=== PATIENT | male | born 1945 | race Caucasian/White ===

== ENCOUNTER 2021-10-06 15:34 | Inpatient (IN) ==
--- NOTE | 2021-10-06 15:42 | Emergency Department Note ---
History of Present Illness General Chief complaint: Dental/Oral Stated complaint: FALL, ORAL/DENTAL INJURY Time Seen by Provider: 10/06/21 15:42 History of Present Illness Maximum Pain Intensity: 5 This is a 75-year-old male that presents to the emergency department via private vehicle accompanied by with complaints of "fall, oral/dental injury". The patient notes earlier today around 4:30 AM he was getting out of bed and fell. He is unsure what caused him to fall. He struck the nightstand from a standing position. His then came to bedside and he was on the ground. He noted that he immediately had injuries to his mouth. There was blood coming from his mouth and upper lip region. He denies losing consciousness. He denies any preceding chest pain, shortness of breath or lightheadedness. No symptoms of chest pain, shortness of breath since the fall. No dizziness. He notes pain in his mouth since the fall. Home Medications Medication Instructions Recorded Confirmed Type atorvastatin 20 mg tablet 20 mg PO QAM 10/06/21 10/06/21 History felodipine 2.5 mg tablet,extended 2.5 mg PO QAM 10/06/21 10/06/21 History release 24 hr lisinopril 20 1 tab PO QAM 10/06/21 10/06/21 History mg-hydrochlorothiazide 12.5 mg tablet Allergies Allergy/AdvReac Type Severity Reaction Status Date / Time No Known Allergies Allergy Unverified 10/06/21 20:14 Past Med/Surg History Medical History HTN (hypertension) Hypercholesterolemia Surgical History No pertinent past surgical history Social History Smoking Status: Former smoker Feels Safe at Home: Yes Review of Systems A total of 10 systems reviewed and were otherwise negative Physical Exam Vital Signs Vital Signs - 24 hr 10/06/21 15:37 10/06/21 16:20 10/06/21 17:28 Temperature 36.5 C Temperature Source Skin Pulse Rate 114 H Pulse Rate [Finger] 89 89 Pulse Rhythm Regular Pulse Rhythm [Finger] Regular Regular Pulse Strength Normal Pulse Strength [Finger] Normal Normal Respiratory Rate 20 16 16 Respiratory Effort / Characteristics Non-Labored Spontaneous Non-Labored Spontaneous Non-Labored Spontaneous Respiratory Depth Normal Normal Normal Respiratory Pattern Regular Regular Regular Blood Pressure 158/80 H Blood Pressure [Right Arm] 140/81 136/74 Blood Pressure Mean 106 Blood Pressure Mean [Right Arm] 100 94 Blood Pressure Position [Right Arm] Sitting Sitting Pulse Oximetry 95 99 94 Oxygen Delivery Method Room Air Room Air Room Air Sepsis Recent Fever Within 48 Hours No Sepsis New/Unexplained Change in Mental Status N/A Sepsis Action Taken by Nursing No Action Required 10/06/21 19:30 10/06/21 21:04 Temperature Temperature Source Pulse Rate Pulse Rate [Finger] 76 74 Pulse Rhythm Pulse Rhythm [Finger] Pulse Strength Pulse Strength [Finger] Respiratory Rate 18 18 Respiratory Effort / Characteristics Respiratory Depth Respiratory Pattern Blood Pressure Blood Pressure [Right Arm] 147/76 H 132/72 Blood Pressure Mean Blood Pressure Mean [Right Arm] 99 92 Blood Pressure Position [Right Arm] Pulse Oximetry 96 96 Oxygen Delivery Method Room Air Sepsis Recent Fever Within 48 Hours Sepsis New/Unexplained Change in Mental Status Sepsis Action Taken by Nursing VITAL SIGNS - Vital signs and nursing notes were reviewed. Stable and afebrile. GENERAL -75-year-old male appearing his stated age. Communicates well with provider and answers questions appropriately. SKIN - Gross examination of the entire body surface demonstrates upper lip laceration to the wet mucosa. This is intraoral. No external lacerations noted. HEAD - Normocephalic, Atraumatic. No Guillen's Sign or Raccoon's Eyes. No depressed skull fractures palpable. EYES - PERRL with EOMI bilaterally. Without subconjunctival hemorrhage. Palpebral conjunctiva pink and moist with no injection. EARS - No deformities of external structures noted on gross examination bilaterally. No hemotympanum present. No tympanic perforation noted. Handle of malleus, umbo, cone of light, pars tensa/flaccid all easily visualized. NOSE - Midline and without cyanosis. No epistaxis or clear watery discharge noted. Septum midline without deviation. No septal hematoma noted. No overlying ecchymosis noted. MOUTH/OROPHARYNX - Without perioral cyanosis. Tongue midline with equal elevation of palate bilaterally. No blood noted in the oropharynx. No tonsillar hypertrophy, erythema, or exudates noted. Several dental fractures noted of the upper dentition. NECK -no tenderness to palpation over the cervical spinous processes. No cervical paraspinal muscle tenderness noted. LUNGS - Chest wall symmetric without accessory muscle use, intercostals retractions, or central cyanosis. Normal vesicular breath sounds CTA B/L. No wheezes, rales, or rhonchi appreciated. CARDIAC - RRR with S1/S2. No murmur, rubs, or gallops appreciated. EXTREMITIES - No gross deformities noted of the extremities. FROM actively. No deficits. +5/5 strength noted in UE/LE bilaterally. NEUROLOGIC - Cranial nerves II through XII grossly intact. PSYCH - A&Ox3 and cooperates fully with examiner. Pt is very pleasant and interacts well with examiner. Course Administered Medications Discontinued Medications Ampicillin Sodium/Sulbactam Sodium 3,000 mg/ Sodium Chloride 108 mls @ 200 mls/hr IV NOW STA; Protocol Stop: 10/06/21 18:48 Last Infusion: 10/06/21 19:36 Dose: 0 mls/hr Documented by: [id number] Admin: 10/06/21 18:57 Dose: 200 mls/hr Documented by: [id number] Miscellaneous Information (Consult Pharmacy) 1 ea N/A NOW STA Stop: 10/06/21 20:08 Last Admin: 10/06/21 20:47 Dose: Not Given Documented by: [id number] Medical Decision Making Laboratory Data Result diagrams: 10/06/21 16:11 10/06/21 16:11 Lab Results 10/06/21 10/06/21 10/06/21 Range/Units 16:11 16:11 18:33 WBC 10.10 (4.8-10.8) K/uL RBC 4.52 L (4.7-6.1) M/uL Hgb 14.7 (14.0-18.0) g/dL Hct 42.1 (42-52) % MCV 93.1 (80-100) fL MCH 32.5 (25-34) pg MCHC 34.9 (32-36) g/dL RDW Std Deviation 44.4 (36.4-46.3) fL RDW Coeff of Amara 13.0 (11.5-14.5) % Plt Count 247 (130-400) K/uL MPV 8.9 (7.4-10.4) fL Immature Gran % (Auto) 0.1 % Neut % (Auto) 83.8 % Lymph % (Auto) 8.6 % [place] % (Auto) 7.3 % Eos % (Auto) 0.1 % Baso % (Auto) 0.1 % Neut # (Auto) 8.46 H (1.4-6.5) K/uL Lymph # (Auto) 0.87 L (1.2-3.4) K/uL [place] # (Auto) 0.74 H (0.11-0.59) K/uL Eos # (Auto) 0.01 (0-0.5) K/uL Baso # (Auto) 0.01 (0-0.2) K/uL Immature Gran # (Auto) 0.01 (0.00-0.02) K/uL Sodium 138 (136-145) mmol/L Potassium 3.9 (3.5-5.1) mmol/L Chloride 102 (98-107) mmol/L Carbon Dioxide 25 (21-32) mmol/L Anion Gap 11 (3-11) BUN 14 (6-23) mg/dl Creatinine 1.21 (0.6-1.4) mg/dl Est Cr Clr Drug Dosing 73.2 ml/min Est GFR ( Amer) 68.4 ml/min Est GFR (Non-Af Amer) 59.0 ml/min BUN/Creatinine Ratio 11.6 (10-20) Glucose 135 H (70-99(Fasting)) mg/dl Calcium 9.3 (8.5-10.1) mg/dl Total Bilirubin 1.1 H (0.2-1.0) mg/dl AST 25 (13-39) U/L ALT 30 (7-52) U/L Alkaline Phosphatase 90 (34-104) U/L Troponin I High Sens 4.2 (0-20) pg/ml Total Protein 7.5 (6.0-8.3) gm/dl Albumin 4.5 (3.4-5.0) gm/dl Globulin 3.0 (2.5-4.0) gm/dl Albumin/Globulin Ratio 1.5 (0.9-2) Urine Color Urine Appearance (Clear) Urine pH (4.5-7.5) Ur Specific [place] (1.000-1.030) Urine Protein (Negative) Urine Glucose (UA) (Negative) Urine Ketones (Negative) Urine Blood (Negative) Urine Nitrite (Negative) Urine Bilirubin (Negative) Urine Urobilinogen (Negative) Ur Leukocyte Esterase (Negative) Urine WBC (Auto) (0-5) /hpf Urine RBC (Auto) (0-4) /hpf U Hyaline Cast (Auto) (0-5) /lpf U Epithel Cells (Auto) (0-5) /lpf Urine Bacteria (Auto) (Negative) SARS-CoV-2, RNA, NAAT NEGATIVE (NEGATIVE) 10/06/21 Range/Units 19:44 WBC (4.8-10.8) K/uL RBC (4.7-6.1) M/uL Hgb (14.0-18.0) g/dL Hct (42-52) % MCV (80-100) fL MCH (25-34) pg MCHC (32-36) g/dL RDW Std Deviation (36.4-46.3) fL RDW Coeff of Amara (11.5-14.5) % Plt Count (130-400) K/uL MPV (7.4-10.4) fL Immature Gran % (Auto) % Neut % (Auto) % Lymph % (Auto) % [place] % (Auto) % Eos % (Auto) % Baso % (Auto) % Neut # (Auto) (1.4-6.5) K/uL Lymph # (Auto) (1.2-3.4) K/uL [place] # (Auto) (0.11-0.59) K/uL Eos # (Auto) (0-0.5) K/uL Baso # (Auto) (0-0.2) K/uL Immature Gran # (Auto) (0.00-0.02) K/uL Sodium (136-145) mmol/L Potassium (3.5-5.1) mmol/L Chloride (98-107) mmol/L Carbon Dioxide (21-32) mmol/L Anion Gap (3-11) BUN (6-23) mg/dl Creatinine (0.6-1.4) mg/dl Est Cr Clr Drug Dosing ml/min Est GFR ( Amer) ml/min Est GFR (Non-Af Amer) ml/min BUN/Creatinine Ratio (10-20) Glucose (70-99(Fasting)) mg/dl Calcium (8.5-10.1) mg/dl Total Bilirubin (0.2-1.0) mg/dl AST (13-39) U/L ALT (7-52) U/L Alkaline Phosphatase (34-104) U/L Troponin I High Sens (0-20) pg/ml Total Protein (6.0-8.3) gm/dl Albumin (3.4-5.0) gm/dl Globulin (2.5-4.0) gm/dl Albumin/Globulin Ratio (0.9-2) Urine Color Yellow Urine Appearance Clear (Clear) Urine pH 7.0 (4.5-7.5) Ur Specific [place] 1.012 (1.000-1.030) Urine Protein Negative (Negative) Urine Glucose (UA) Negative (Negative) Urine Ketones Trace H (Negative) Urine Blood Negative (Negative) Urine Nitrite Negative (Negative) Urine Bilirubin Negative (Negative) Urine Urobilinogen Negative (Negative) Ur Leukocyte Esterase Trace H (Negative) Urine WBC (Auto) 1-5 (0-5) /hpf Urine RBC (Auto) 0-4 (0-4) /hpf U Hyaline Cast (Auto) 1-5 (0-5) /lpf U Epithel Cells (Auto) 10-20 H (0-5) /lpf Urine Bacteria (Auto) Negative (Negative) SARS-CoV-2, RNA, NAAT (NEGATIVE) Imaging Data Radiologist's Impression: Cervical Spine CT 10/06/21 15:51 CT OF THE CERVICAL SPINE WITHOUT CONTRAST CLINICAL HISTORY: Fall, Facial trauma. COMPARISON STUDY: No previous studies for comparison. TECHNIQUE: Helical axial images of the cervical spine were obtained without IV contrast. Sagittal and coronal reconstructions were viewed. Automated exposure control was utilized for the study. A dose lowering technique was utilized adhering to the principles of ALARA. FINDINGS: There is reversal of the normal cervical lordosis. No acute cervical spine fracture is noted. Extensive osteophytosis of the mid to lower cervical spine is present. There is moderate multilevel disc space narrowing. Facet joints are intact. There is severe multilevel facet arthrosis. No prevertebral edema is present. IMPRESSION: No acute cervical spine fracture or subluxation. ACT 112: Negative or not required by law. Electronically signed by: Ildefonso Noel M.D. 10/06/2021 5:[address] 10/06/21 15:[address] WITHOUT CONTRAST CLINICAL HISTORY: Fall, Facial trauma, upper lip/teeth COMPARISON STUDY: None. TECHNIQUE: A maxillofacial CT was performed without IV contrast. Coronal and sagittal reformats were viewed. Automated exposure control was utilized for the study. A dose lowering technique was utilized adhering to the principles of ALARA. FINDINGS: Globes are intact. There is no retrobulbar hematoma. Orbital floors are intact. Pterygoid plates are intact. Alignment of the temporomandibular joints is anatomic. There is no acute skull base fracture. Note is made of an acute fracture through the left aspect of the maxilla. This involves the alveolar ridge of the left maxillary medial incisor. There is lucency adjacent to the root of this tooth. There is a 1.2 cm bony erosion associated with the left maxillary first bicuspid. This is not acute. There is abnormal lucency along the alveolar ridge of multiple mandibular teeth. This is age indeterminate. Numerous teeth are absent. Cervical spine CT will be reported separately. IMPRESSION: 1. Acute nondisplaced fracture of the left anterior maxilla involving the alveolar ridge of the left maxillary medial incisor. This tooth is likely loose. 2. Abnormal lucency along the alveolar ridge of multiple mandibular teeth. This finding is age indeterminate although probably chronic. This could be correlated with physical exam to exclude an additional acute fracture. 3. Extensive odontogenic disease. ACT 112: Negative or not required by law. Electronically signed by: Ildefonso Noel M.D. 10/06/2021 4:[address] 10/06/21 15:51 CT OF THE HEAD WITHOUT CONTRAST CLINICAL HISTORY: Fall, Facial trauma, upper lip/teeth COMPARISON STUDY: No previous studies for comparison. TECHNIQUE: Helical axial images of the head were obtained without IV contrast. Automated exposure control was utilized for the study. A dose lowering technique was utilized adhering to the principles of ALARA. FINDINGS: No acute intracranial hemorrhage, midline shift or mass effect is present. The ventricular system is unremarkable. The basal cisterns are patent. No extra-axial collections are present. There are no findings to suggest acute dural sinus thrombosis or acute territorial infarct. No significant calvarial abnormalities are present. Visualized portions of the sinuses and mastoid air cells are clear. IMPRESSION: 1. No acute intracranial findings. 2. No acute calvarial fracture. ACT 112: Negative or not required by law. Electronically signed by: Ildefonso Noel M.D. 10/06/2021 4:48 PM MDM Narrative Patient was seen and evaluated as above in room D01. Review was performed of nursing notes and vital signs. After obtaining a thorough history and physical examination the above work up was performed. Patient presents to us today for evaluation of facial trauma status post fall that occurred about 12 hours ago. He clinically appears well and is nontoxic. He does have an upper lip intraoral laceration as well as several upper dentition that have been injured. Options of care were discussed with the patient. IV access was established. Labs were drawn. Patient is unsure what caused him to fall earlier today. Labs reveal no leukocytosis or concerning anemia. No emergent metabolic disturbance. T bili 1.1. Glucose 135. Urinalysis does not suggest infection. COVID testing negative. CT scan was obtained of the head, face and C-spine. Results of these as above. CT scan of the head and neck are overall reassuring from an acute/traumatic process. The patient does have facial injuries noted. There is an acute nondisplaced fracture of the left anterior maxilla involving the alveolar ridge of the left maxillary medial incisor. The tooth is likely loose per CT report. There is also comment of abnormal lucency along the alveolar ridge of multiple mandibular teeth. This finding is age-indeterminate. I discussed the presentation with the on-call oral maxillofacial surgeon, Dr. Welch. He came to evaluate the patient. Please refer to his note regarding consult. At this time we will defer to surgical intervention regarding his dentition as well as the lip laceration. Dr. Welch will perform the surgery. In order to undergo anesthetic however the patient will be admitted to the medicine service pending surgery to gain medical clearance as it is unclear what caused him to fall earlier today. Case discussed with the hospitalist service. Please refer to further documentation regarding his stay. In discussion with Dr. Welch, we will start the patient on IV antibiotics noting the several dental injuries to help prevent infection. This will be IV Unasyn. Please refer to further documentation regarding the patient's stay. EKG was performed. Initial EKG was abnormal. This revealed what appears to be a sinus rhythm with a rate of 80 bpm. QTc 431. QRS 100. No ST elevation. The patient does have inverted P waves and I am suspicious for incorrect placement of the leads. Repeat was performed and was felt to be more accurate. This revealed sinus rhythm with sinus arrhythmia at a rate of 69 bpm. QTc 413. QRS 104. No ST elevation. GCS: 15 In the evaluation and treatment of this patient the following differential abbie gnoses were entertained: Dental fracture, acute intracranial abnormality, cardiac abnormality, anemia, infection, among others Impression & Plan Fall, Fracture of maxillary alveolar socket wall, Loose tooth due to trauma, Lip laceration, Closed fracture of face bones due to fall Discharge Plan Visit Data Chief Complaint: Dental/Oral Stated Complaint: FALL, ORAL/DENTAL INJURY ED Provider: Gabriel Méndez ED Midlevel Provider: Masoud Tavares Patient Disposition: Admitted As Inpatient Condition: Good Prescriptions Prescriptions: No Action felodipine 2.5 mg tablet extended release 24 hr 2.5 mg PO QAM RF: 0 atorvastatin 20 mg tablet 20 mg PO QAM RF: 0 lisinopril-hydrochlorothiazide 20-12.5 mg tablet 1 tab PO QAM RF: 0
[2021-10-06 16:25] LABS: Basophils # (auto) 0.01 K/uL (0-0.2); Basophils % (auto) 0.1 %; Eosinophils # (auto) 0.01 K/uL (0-0.5); Eosinophils % (auto) 0.1 %; Hematocrit (blood only) 42.1 % (42-52); Hemoglobin 14.7 g/dL (14.0-18.0); Immature Granulocytes # (auto) 0.01 K/uL (0.00-0.02); Immature Granulocytes % (auto) 0.1 %; Lymphocytes # (auto) 0.87 K/uL (1.2-3.4); Lymphocytes % (auto) 8.6 %; Mean Corpuscular Hemoglobin 32.5 pg (25-34); Mean Corpuscular Hgb Conc 34.9 g/dL (32-36); Mean Corpuscular Volume 93.1 fL (80-100); Mean Platelet Volume 8.9 fL (7.4-10.4); Monocytes # (auto) 0.74 K/uL (0.11-0.59); Monocytes % (auto) 7.3 %; Neutrophils # (auto) 8.46 K/uL (1.4-6.5); Neutrophils % (auto) 83.8 %; Platelet Count 247 K/uL (130-400); RDW Standard Deviation 44.4 fL (36.4-46.3); Red Blood Count 4.52 M/uL (4.7-6.1)
[2021-10-06 16:47] LABS: Troponin I High Sensitivity 4.2 pg/ml (0-20)
--- NOTE | 2021-10-06 16:50 | CT Scan Report ---
CT OF THE HEAD WITHOUT CONTRAST CLINICAL HISTORY: Fall, Facial trauma, upper lip/teeth COMPARISON STUDY: No previous studies for comparison. TECHNIQUE: Helical axial images of the head were obtained without IV contrast. Automated exposure con trol was utilized for the study. A dose lowering technique was utilized adhering to the principles o f ALARA. FINDINGS: No acute intracranial hemorrhage, midline shift or mass effect is present. The ventricular system is unremarkable. The basal cisterns are patent. No extra-axial collections are present. There are no findings to suggest acute dural sinus thrombosis or acute territorial infarct. No significant calvarial abnormalities are present. Visualized portions of the sinuses and mastoid air cells are cecil ar. IMPRESSION: 1. No acute intracranial findings. 2. No acute calvarial fracture. ACT 112: Negative or not required by law. Electronically signed by: Ildefonso Noel M.D. 10/06/2021 4:48 PM
[2021-10-06 16:56] LABS: Albumin Globulin Ratio 1.5 (0.9-2); Albumin Level 4.5 gm/dl (3.4-5.0); BUN Creatinine Ratio 11.6 (10-20); Bilirubin,Total 1.1 mg/dl (0.2-1.0); Calcium 9.3 mg/dl (8.5-10.1); Creatinine Clr Calc Pharmacy 73.2 ml/min; Est GFR (African American) 68.4 ml/min; Potassium 3.9 mmol/L (3.5-5.1); Total Protein 7.5 gm/dl (6.0-8.3)
--- NOTE | 2021-10-06 17:01 | CT Scan Report ---
MAXILLOFACIAL CT WITHOUT CONTRAST CLINICAL HISTORY: Fall, Facial trauma, upper lip/teeth COMPARISON STUDY: None. TECHNIQUE: A maxillofacial CT was performed without IV contrast. Coronal and sagittal reformats were viewed. Automated exposure control was utilized for the study. A dose lowering technique was utiliz ed adhering to the principles of ALARA. FINDINGS: Globes are intact. There is no retrobulbar hematoma. Orbital floors are intact. Pterygoid p lates are intact. Alignment of the temporomandibular joints is anatomic. There is no acute skull base fracture. Note is made of an acute fracture through the left aspect of the maxilla. This involves th e alveolar ridge of the left maxillary medial incisor. There is lucency adjacent to the root of this tooth. There is a 1.2 cm bony erosion associated with the left maxillary first bicuspid. This is not acute. There is abnormal lucency along the alveolar ridge of multiple mandibular teeth. This is age i ndeterminate. Numerous teeth are absent. Cervical spine CT will be reported separately. IMPRESSION: 1. Acute nondisplaced fracture of the left anterior maxilla involving the alveolar ridge of the left maxillary medial incisor. This tooth is likely loose. 2. Abnormal lucency along the alveolar ridge of multiple mandibular teeth. This finding is age indete rminate although probably chronic. This could be correlated with physical exam to exclude an addition al acute fracture. 3. Extensive odontogenic disease. ACT 112: Negative or not required by law. Electronically signed by: Ildefonso Noel M.D. 10/06/2021 4:58 PM
--- NOTE | 2021-10-06 17:06 | CT Scan Report ---
CT OF THE CERVICAL SPINE WITHOUT CONTRAST CLINICAL HISTORY: Fall, Facial trauma. COMPARISON STUDY: No previous studies for comparison. TECHNIQUE: Helical axial images of the cervical spine were obtained without IV contrast. Sagittal a nd coronal reconstructions were viewed. Automated exposure control was utilized for the study. A do se lowering technique was utilized adhering to the principles of ALARA. FINDINGS: There is reversal of the normal cervical lordosis. No acute cervical spine fracture is note d. Extensive osteophytosis of the mid to lower cervical spine is present. There is moderate multileve l disc space narrowing. Facet joints are intact. There is severe multilevel facet arthrosis. No preve rtebral edema is present. IMPRESSION: No acute cervical spine fracture or subluxation. ACT 112: Negative or not required by law. Electronically signed by: Ildefonso Noel M.D. 10/06/2021 5:03 PM
[2021-10-06] MEDS ORDERED: AMPICILLIN/SULBACTAM SOD 3,000 MG in 0.9 % SODIUM CHLORIDE 100 ML IV STA (18:16)
--- NOTE | 2021-10-06 18:24 | Oral/Maxillofacial Consult ---
Date of Consultation October 06, 2021 Assessment & Plan (1) Fracture of maxillary alveolar socket wall: (2) Loose tooth due to trauma: (3) Chronic periodontal disease: (4) Lip laceration: (5) Closed fracture of face bones due to fall: History of Present Illness History of Present Illness Oral Maxillofacial Surgery Exam Present Complaint: Patients states he fell getting out of bed and hit face (teeth and lips ) on end table--laceration/abrasion to upper lip, trauma to ALL upper and remaining lower anterior teeth. Vishnu not able to close his mouth together due to the displaced teeth--The dental sockets supporting the teeth are fractured (segmental ). Unfortunately his teeth are in such poor quality that extraction of all the traumatized teeth are necessary. Need to w/up etiology of why he fainted and fell hitting his face. Oral Exam: Finding--Swollen upper lip with lacerations and abrasions The gingival tissue with deep pocket formation Teeth are in an abnormal position due to recent traumatic accident and removal is clinical indicated. Once the teeth extracted I will be able to use stabilization sutures to maintain the alveolar plates. Imaging: CLINICAL HISTORY: Fall, Facial trauma, upper lip/teeth--reason undetermined FINDINGS: Globes are intact. There is no retrobulbar hematoma. Orbital floors are intact. Pterygoid plates are intact. Alignment of the temporomandibular joints is anatomic. There is no acute skull base fracture. Note is made of an acute fracture through the left aspect of the maxilla. This involves the alveolar ridge of the left maxillary medial incisor. There is lucency adjacent to the root of this tooth. There is a 1.2 cm bony erosion associated with the left maxillary first bicuspid. This is not acute. There is abnormal lucency along the alveolar ridge of multiple mandibular teeth. IMPRESSION: 1. Acute nondisplaced fracture of the left anterior maxilla involving the alveolar ridge of the left maxillary medial incisor. This tooth is likely loose. 2. Abnormal lucency along the alveolar ridge of multiple mandibular teeth. This finding is age indeterminate although probably chronic. This could be correlated with physical exam to exclude an additional acute fracture. 3. Extensive odontogenic disease. Soft tissue: Upper lip mucosal lacerations and abrasions floor of the mouth, tongue, hard/soft palate, posterior pharyngeal area all with in normal limits, no pathology or abnormal findings noted. Oral Care: Overall oral care is very poor Occlusion: Class not able to determine as he is not able to close his mouth due to the displacement of the teeth TMJ exam: No pop, clicking, pain, good ROM, No history of TMJ injury or dysfunction Periodontal exam: Acute evidence of periodontal pathology. Bleeding and contusion/abrasions of gingival tissue secondary to recent injury Bleeding around the loose teeth. Head/Neck exam: Neck is supple, FROM, Able to extend and flex neck w/o difficulty, no masses, no abnormalities, no airway issues, suspect + evidence of sleep apnea. Treatment Plan: Given that he only has a few upper and lower anterior teeth -- the recent trauma has caused all the teeth to be effected--There is segmental fractures of all the facial plates of bone with obvious displacement of the following teeth There is no way to stabilize the loose/fractured/traumatized teeth and extraction with preservation with as much bone is the treatment of choice Set up with general anesthesia in hospital due to complexity of the procedure. Admission on [facility] service=medical w/up needed. Once cleared for surgery/General anesthesia hopefully tomorrow afternoon - I reviewed the treatment plan and consent with the patient and his . Understanding was expressed--given the need to remove all the remaining upper and lower teeth Time was given for questions regarding the surgery, risks and post op care. Discussed alternative to treatment--procedure as planned, really no other option--doing nothing is NOT AN OPTION The following teeth are loose/fractured and displaced and removal is indicated ALINA: repair of the lip laceration- upper lip mucosal Risks discussed: Bleeding,Pain,swelling,infection, dry socket, delayed healing, nerve injury to face,lips,tongue,chin area which could be permanent (rare). TMJ, jaw stiffness, change in bite (rare), ear pain (referred). Sinus problems like fistula or infection. Need to leave a small root fragment in place to avoid injury to nerve or sinus. Relationship of wisdom teeth to nerve/sinus and risk of jaw fracture. Home care reviewed: follow up care with Dr Welch. diet=[id number] dental. Discussed activity level, driving/work while on Rx pain Meds. Surgery to be set up once cleared by hospital medicine --hopefully Friday Patient History Social History Smoking Status: Former smoker Feels Safe at Home: Yes Results & Data ([facility]) Vital Signs (Past 12 Hours) Vital Signs Temp Pulse Pulse Resp BP BP Pulse Ox 10/06/21 17:28 89 16 136/74 94 10/06/21 16:20 89 16 140/81 99 10/06/21 15:37 36.5 C 114 H 20 158/80 H 95 PG Care Time/CCT Total # of Minutes Spent Total Time Spent with Patient: Total time spent is greater than 50% in coordination of care (as documented) at patient's floor/unit and/or counseling patient: Coding Level of Care Code 61807 Office/Outpt Visit, New Diagnoses Fracture of maxillary alveolar socket wall S02.42XA Loose tooth due to trauma K08.89 Chronic periodontal disease K05.6 Lip laceration S01.511A Closed fracture of face bones due to fall S02.92XA; W19.XXXA Time Spent (min) 60 Comment admission on hospital service --for OR once medically cleared
[2021-10-06 20:01] LABS: Appearance Urine Clear (Clear); Bacteria Urine Automated Negative (Negative); Bilirubin Urine Negative (Negative); Blood Urine Negative (Negative); Color Urine Yellow; Glucose Urine UA Negative (Negative); Ketones Urine Trace (Negative); Leukocyte Esterase Urine Trace (Negative); Nitrite Urine Negative (Negative); Protein Urine Negative (Negative); RBC Urine Automated 0-4 /hpf (0-4); Specific Gravity Urine 1.012 (1.000-1.030); Urobilinogen Urine Negative (Negative)
[2021-10-06] MEDS ORDERED: CONSULT PHARMACY STA (20:07)
[2021-10-06] MEDS ORDERED: NITROGLYCERIN SL 0.4 MG/TAB TAB SL PRN (21:27)
[2021-10-06] MEDS ORDERED: hydrALAZINE HCL 20 MG/ML VIAL IV PRN (21:27)
[2021-10-06] MEDS ORDERED: ACETAMINOPHEN 1000 MG/100 ML IV IV PRN (21:27)
[2021-10-06] MEDS ORDERED: AMPICILLIN/SULBACTAM CONSULT ACTIVE PRN (21:32)
[2021-10-06] MEDS ORDERED: ACETAMINOPHEN 1,000 MG/100 ML VIAL IV PRN (21:45)
[2021-10-06] MEDS: SODIUM CHLORIDE 0.9% 1000ML 1,000 ML IV SCH (22:02)
[2021-10-06] MEDS: AMPICILLIN/SULBACTAM SOD 3,000 MG in 0.9 % SODIUM CHLORIDE 100 ML IV SCH (23:25)
--- NOTE | 2021-10-06 23:59 | History and Physical Report ---
DATE OF ADMISSION: 10/06/2021. CHIEF COMPLAINT: Status post fall and facial injury. HISTORY OF PRESENT ILLNESS: This is a 75-year-old male with past medical history significant for hyperlipidemia, gout, prediabetes, hypertension, severe obesity, chronic kidney disease stage III, history of colon polyps who presents with fall. The patient was sleeping, woke up and trying to get up from the bed, he does not know what happened. He thinks maybe his legs got tangled in the bedsheet and he fell on the nightstand on the face, did not pass out. There was lot of blood coming from the mouth. After that, he felt dizzy. He called his and came here and imaging is showing acute nondisplaced fracture of the left anterior maxilla involving the alveolar ridge of the left maxillary medial incisor and had a loose tooth due to trauma. He was evaluated by behavioral science chair and plan for surgery tomorrow. The patient denies any headache. Has some neck pain from the fall, but he has chronic neck pain. Denies any blurred visions, no runny nose, no sore throat, no cough, no recent fever or chills. No chest pain, no shortness of breath. No nausea, no vomiting, no abdominal pain, normal bowel and bladder movements. No swelling in the legs. Otherwise, ambulates okay, he can ambulate 2 blocks without stopping. ALLERGIES: No known drug allergies. MEDICAL HISTORY: As mentioned above. PAST SURGICAL HISTORY: Colonoscopy with biopsy. MEDICATIONS: The patient is on atorvastatin 20 mg p.o. daily, felodipine 2.5 mg p.o. daily, lisinopril/hydrochlorothiazide 20/12.5 mg p.o. daily. FAMILY HISTORY: Significant for brother had diabetes, hypertension; mother has hypertension, heart disorder; father has Alzheimer disease. SOCIAL HISTORY: . Smoked for 20 years. Alcohol, wine daily. No drug use. REVIEW OF SYSTEMS: As per HPI. Rest of review of systems is negative. PHYSICAL EXAMINATION: GENERAL: The patient is obese, not in acute distress. VITAL SIGNS: Temperature 36.5, pulse 89, respiratory rate 16, blood pressure 136/74, oxygen 94% on room air. HEENT: Pupils equal, round and reactive to light. bruise on the lips seen. NECK: No JVD, no neck masses. CARDIOVASCULAR: S1 and S2 heard. Regular rate and rhythm. No murmur, no gallop. RESPIRATORY SYSTEM: Normal AP diameter. No accessory muscle use. No wheezing, no crackles. ABDOMEN: Soft. Bowel sounds are present, nontender, no distention. CENTRAL NERVOUS SYSTEM: Cranial nerves II-XII grossly intact, nonfocal. EXTREMITIES: No edema, no erythema. LABORATORY DATA: WBC 10, hemoglobin 14.7, hematocrit 42.1, platelets 247. Sodium 138, potassium 3.9, chloride 102, bicarb 25, BUN 14, creatinine 1.2, serum glucose 135, calcium 9.3, total bilirubin 1.1, AST 25, ALT 30, alkaline phosphatase 90. Troponin I high sensitivity 4.2. Urinalysis negative. SARS-CoV-2 rapid test negative. IMAGING: CT of the head without contrast, no acute findings. Facial CT without contrast, acute nondisplaced fracture of the left anterior maxilla involving the alveolar ridge of the left maxillary medial incisor, this tooth is slightly loose. Abnormal lucency along the alveolar ridge of multiple mandibular teeth. This finding is age indeterminate, although probably chronic. Extensive odontogenic disease. EKG: Initial EKG showing possible ectopic atrial rhythm with undetermined rhythm irregularity at the rate of 80. Repeat EKG showed sinus rhythm with marked sinus arrhythmia at a rate of 69, left posterior fascicular block. ASSESSMENT AND PLAN: This is a 75-year-old male presents after fall and facial injury. 1. Fall, etiology unclear: The patient thinks this is a mechanical fall. The patient thinks he was trying to get up from the bed and his legs tangled in the bedsheet and fell on the nightstand, but was not sure about it. We will monitor as presyncope.Initial troponin is negative. Abnormal EKG, but no acute findings. Ct head negative.No sob. We will monitor in the tele floor. We will follow the repeat troponin in a.m. and also echocardiogram. Check orthostatics. 2. Facial injury with a loose tooth and nondisplaced fracture of the left anterior maxilla: Was seen by behavioral science chair. Plan to take to OR tomorrow. His labs look okay. If the tele monitor looks okay and if his echo and troponin is negative, he should be acceptable risk to proceed with surgery tomorrow. 3. History of hyperlipidemia: On statin. 4. History of hypertension. We will continue with felodipine. We will hold the lisinopril/hydrochlorothiazide until the surgery is done. We will place him on IV hydralazine p.r.n. Monitor the blood pressure. 5. History of severe obesity: Needs counseling. May need sleep study. 6. Deep venous thrombosis prophylaxis: Sequential compression devices for now. DISPOSITION: Closely monitor in the med tele. PT/OT prior to discharge. Social Service to help with discharge planning. Job ID: [id number] [facility]
[2021-10-07] MEDS: SODIUM CHLORIDE 0.9% 1000ML 1,000 ML IV SCH ×2 (05:33→17:23)
[2021-10-07] MEDS: AMPICILLIN/SULBACTAM SOD 3,000 MG in 0.9 % SODIUM CHLORIDE 100 ML IV SCH ×4 (05:34→23:31)
[2021-10-07 06:31] LABS: Basophils # (auto) 0.02 K/uL (0-0.2); Basophils % (auto) 0.3 %; Eosinophils % (auto) 1.3 %; Hematocrit (blood only) 42.3 % (42-52); Hemoglobin 13.9 g/dL (14.0-18.0); Immature Granulocytes # (auto) 0.02 K/uL (0.00-0.02); Immature Granulocytes % (auto) 0.3 %; Lymphocytes # (auto) 1.38 K/uL (1.2-3.4); Lymphocytes % (auto) 17.9 %; Mean Corpuscular Hemoglobin 31.1 pg (25-34); Mean Corpuscular Hgb Conc 32.9 g/dL (32-36); Mean Corpuscular Volume 94.6 fL (80-100); Mean Platelet Volume 9.4 fL (7.4-10.4); Monocytes % (auto) 10.4 %; Neutrophils % (auto) 69.8 %; Platelet Count 261 K/uL (130-400); RDW Coefficient of Variation 13.4 % (11.5-14.5); RDW Standard Deviation 46.2 fL (36.4-46.3); Red Blood Count 4.47 M/uL (4.7-6.1); White Blood Count 7.72 K/uL (4.8-10.8)
[2021-10-07 06:58] LABS: D Dimer 370 ug/L FEU (0-500)
[2021-10-07 07:07] LABS: Troponin I High Sensitivity 6.3 pg/ml (0-20)
[2021-10-07 07:14] LABS: Anion Gap 9 (3-11); BUN Creatinine Ratio 11.3 (10-20); Blood Urea Nitrogen 12 mg/dl (6-23); Calcium 8.7 mg/dl (8.5-10.1); Carbon Dioxide 27 mmol/L (21-32); Chloride 104 mmol/L (98-107); Creatinine Clr Calc Pharmacy 80.7 ml/min; Est GFR (African American) 80.3 ml/min; Est GFR (Non-African American) 69.3 ml/min; Glucose 112 mg/dl (70-99(Fasting)); Magnesium 2.1 mg/dl (1.7-2.4); Sodium 140 mmol/L (136-145)
[2021-10-07] MEDS: ATORVASTATIN 20 MG TAB PO SCH (08:18)
[2021-10-07] MEDS: FELODIPINE 2.5 MG TABCR PO SCH (08:18)
--- NOTE | 2021-10-07 09:26 | Hospitalist Progress Note ---
Date of Service October 07, 2021 Assessment & Plan (1) Closed fracture of face bones due to fall: Plan: Patient is a 75 yr male who presents after fall and facial injury. Mechanical fall Fracture of maxillary alveolar socket wall Loose tooth due to trauma Chronic periodontal disease Lip laceration --Head CT:No acute intracranial findings. No acute calvarial fracture --Face CT:Acute nondisplaced fracture of the left anterior maxilla involving the alveolar ridge of the left maxillary medial incisor. This tooth is likely loose. Abnormal lucency along the alveolar ridge of multiple mandibular teeth. This finding is age indeterminate although probably chronic. This could be correlated with physical exam to exclude an additional acute fracture. Extensive odontogenic disease. --Neck CT:No acute cervical spine fracture or subluxation. --Appreciate oromaxillary surgery input --Pain control Clear liquid diet for now Continue Unasyn Suspected Presyncope Fall precautions Monitor on Tele ECHO:reviewed Hyperlipidemia: On statin HTN Continue felodipine. Resume lisinopril/hydrochlorothiazide as able Monitor BP Obesity BMI: 36 DVT Px: SCDs for now Admission and Anticipated Discharge Date Admission Date: October 06, 2021 Subjective Patient is seen and examined at bedside States having facial pain is controlled Had some difficulty opening his mouth secondary to pain Denies any chest pain, shortness of breath, dizziness, nausea, abdominal pain Plan for surgery today Offers no other complaints Review of Systems Review of Systems: All systems reviewed & are unremarkable except as noted in Subjective Physical Exam Physical Exam: Physical Exam: Vitals signs as noted above General Appearance:Obese, no apparent distress Head: normocephalic, +traumatic: Upper lip mucosal laceration, abrasion, loose teeth, dried blood Eyes: normal inspection, EOMI Neck: supple, Trachea midline Respiratory/Chest: Normal breath sounds, CTA, No accessory muscle use Cardiovascular: S1, S2, No murmur Abdomen/GI:Soft, Non tender, Bowel sounds present Extremities/Musculoskeletal:normal inspection, Trace pedal edema Neurologic/Psych:AAOX3, grossly no focal neurological deficits Skin: normal color, warm Results & Data Results & Data ([facility]) Vital Signs (Past 12 Hours) Vital Signs Temp Pulse Pulse Resp BP BP Pulse Ox 10/07/21 07:56 37.0 C 64 19 141/76 H 96 10/07/21 03:00 37.1 C 59 L 20 116/66 96 10/06/21 23:24 36.7 C 66 20 138/81 95 10/06/21 22:59 86 10/06/21 21:50 76 10/06/21 21:28 37.6 C H 75 22 138/86 97 Laboratory Results Short CBC 10/06/21 10/07/21 Range/Units 16:11 05:18 WBC 10.10 7.72 (4.8-10.8) K/uL Hgb 14.7 13.9 L (14.0-18.0) g/dL Hct 42.1 42.3 (42-52) % Plt Count 247 261 (130-400) K/uL BMP 10/06/21 10/07/21 10/07/21 16:11 05:18 07:21 Sodium 138 140 Potassium 3.9 TNP 4.0 Chloride 102 104 Carbon Dioxide 25 27 BUN 14 12 Creatinine 1.21 1.06 Glucose 135 H 112 H Calcium 9.3 8.7 Liver Function 10/06/21 Range/Units 16:11 Total Bilirubin 1.1 H (0.2-1.0) mg/dl AST 25 (13-39) U/L ALT 30 (7-52) U/L Alkaline Phosphatase 90 (34-104) U/L Albumin 4.5 (3.4-5.0) gm/dl Urine 10/06/21 Range/Units 19:44 Urine Color Yellow Urine Appearance Clear (Clear) Urine pH 7.0 (4.5-7.5) Ur Specific [place] 1.012 (1.000-1.030) Urine Protein Negative (Negative) Urine Glucose (UA) Negative (Negative)
[2021-10-07] MEDS ORDERED: DEXAMETHASONE SOD INJ 4 MG/ML VIAL ONE (09:37)
[2021-10-07] MEDS ORDERED: PROPOFOL IV EMULSION 10 MG/ML 20 ML VIAL IV ONE ×2 (09:37→11:27)
[2021-10-07] MEDS ORDERED: ONDANSETRON INJ 2 MG/ML 2 ML VIAL ONE (09:37)
[2021-10-07] MEDS ORDERED: ROCURONIUM BROMIDE 10 MG/ML 5 ML VIAL IV ONE (09:37)
[2021-10-07] MEDS ORDERED: LIDOCAINE 2% 2 ML VIAL/AMP(20MG/ML) INFIL ONE (09:37)
[2021-10-07] MEDS ORDERED: fentaNYL citrate 100 MCG/2 ML VIAL ONE (09:37)
[2021-10-07] MEDS ORDERED: BUPIVACAINE/EPINEPHRINE 0.5% 1:200,000 1.8 ML CARP ONE (09:59)
[2021-10-07] MEDS ORDERED: CHLORHEXIDINE GLUCONATE 0.12% 480 ML ONE (09:59)
--- NOTE | 2021-10-07 10:01 | Anesthesiology Consultation ---
Date of Service October 07, 2021 Assessment & Plan ASA ASA3 Proposed Anesthesia Anesthesia Type: General Risk / Benefits Reviewed With: PT / POA / Parent / Guardian, Accepts Plan and Informed Consent Obtained History Surgery Operation Date: 10/07/21 09:15 Proposed Procedures p Suturing Facial Lacerations - Dewey Welch DMD s Excision Oral Cavity - Dewey Welch DMD Height/Weight Height: 5 ft 11 in Weight: 117 kg Allergies Allergy/AdvReac Type Severity Reaction Status Date / Time No Known Allergies Allergy Unverified 10/06/21 20:14 Medications Home Medications Medication Instructions Recorded Confirmed Last Taken atorvastatin 20 mg tablet 20 mg PO QAM 10/06/21 10/06/21 10/06/21 felodipine 2.5 mg tablet,extended 2.5 mg PO QAM 10/06/21 10/06/21 10/06/21 release 24 hr lisinopril 20 1 tab PO QAM 10/06/21 10/06/21 10/06/21 mg-hydrochlorothiazide 12.5 mg tablet Active Medications Generic Name Dose Route Start Last Admin Trade Name Jaysonq PRN Reason Stop Dose Admin Atorvastatin Calcium 20 mg 10/07/21 09:00 10/07/21 08:18 Atorvastatin 20 Mg Tab PO 11/06/21 08:59 20 mg DAILY VINCENT Administration Felodipine 2.5 mg 10/07/21 09:00 10/07/21 08:18 Felodipine 2.5 Mg Tabcr PO 11/06/21 08:59 2.5 mg DAILY VINCENT Administration Sodium Chloride 1,000 mls @ 125 mls/hr 10/06/21 21:27 10/07/21 05:33 Nss 1000ml IV 11/05/21 21:26 125 mls/hr .Q8H VINCENT Administration Ampicillin Sodium/Sulbactam 108 mls @ 216 mls/hr 10/07/21 00:00 10/07/21 06:04 Sodium 3,000 mg/ Sodium IV 10/14/21 00:00 Infused Chloride Q6H VINCENT Infusion Protocol NPO Date Last Intake of Fluids: 10/07/21 Time Last Intake of Fluids: 09:00 Date Last Intake of Solids: 10/04/21 Time Last Intake of Solids: 18:00 Past Medical History Medical History HTN (hypertension) Hypercholesterolemia Exercise / Class Metabolic Activity II 4-5 Yardwork/Stairs/Walk up hill Past Surgical History Surgical History No pertinent past surgical history Past Anesthesia History No Hx of Anesthesia Complications and No Family Hx of Anesthesia Complications History of PONV No Hx of PONV and No Hx of Motion Sickness Social History Smoking Status: Former smoker Hx Alcohol Use: Yes Alcohol type: wine alcohol intake frequency: 3 or more drinks per day substance use type: does not use Review of Systems denies fever/cough/ colds/ chest pain/ SOB/ EMIL denies EMIL Physical Exam Vital Signs Last Vital Signs Temp 37.0 C 10/07/21 07:56 Pulse 64 10/07/21 07:56 Resp 19 10/07/21 07:56 BP 141/76 H 10/07/21 07:56 Pulse Ox 96 10/07/21 07:56 ENMT Mouth: + dentition abnormality and + poor dentition (multiple missing and broken); no TMJ abnormality Thyromental Distance: > or= 3.5 Finger Breadths Mallampati Class: II Neck + limited neck extension Respiratory normal respiratory effort; no respiratory distress Auscultation: lungs clear to auscultation bilaterally Cardiovascular Rate/Rhythm: regular rate and regular rhythm Neurologic moves all extremities Psychiatric Orientation: alert and oriented x 3 Testing Laboratory Results 10/07/21 05:18 10/07/21 07:21 Urine Color Yellow 10/06/21 19:44 Urine Appearance Clear (Clear) 10/06/21 19:44 Urine pH 7.0 (4.5-7.5) 10/06/21 19:44 Ur Specific [place] 1.012 (1.000-1.030) 10/06/21 19:44 Urine Protein Negative (Negative) 10/06/21 19:44 Urine Glucose (UA) Negative (Negative) 10/06/21 19:44 Urine Ketones Trace (Negative) H 10/06/21 19:44 Urine Nitrite Negative (Negative) 10/06/21 19:44 Ur Leukocyte Esterase Trace (Negative) H 10/06/21 19:44 Urine WBC (Auto) 1-5 /hpf (0-5) 10/06/21 19:44 Urine RBC (Auto) 0-4 /hpf (0-4) 10/06/21 19:44 U Hyaline Cast (Auto) 1-5 /lpf (0-5) 10/06/21 19:44 U Epithel Cells (Auto) 10-20 /lpf (0-5) H 10/06/21 19:44 Urine Bacteria (Auto) Negative (Negative) 10/06/21 19:44
--- NOTE | 2021-10-07 10:02 | History & Physical Bridge Note ---
Date of Service October 07, 2021 History & Physical Bridge Note I have examined the patient, reviewed the History & Physical and in the interval since the performance of the History & Physical I have noted the following changes of clinical significance: no changes noted. Patient is medically cleared for the anesthesia OK for the procedure this AM No changes noted since last night when I did the consult
[2021-10-07] MEDS ORDERED: ePHEDrine sulfate 50 MG/ML AMP IV PRN (10:56)
[2021-10-07] MEDS ORDERED: ONDANSETRON INJ 2 MG/ML 2 ML VIAL IV PRN (10:56)
[2021-10-07] MEDS ORDERED: ATROPINE SULFATE 0.1 MG/ML 10ML SYR IV PRN (10:56)
[2021-10-07] MEDS ORDERED: HYDROmorphone INJ 2 MG/ML SYR/VIAL IV PRN (10:56)
[2021-10-07] MEDS ORDERED: fentaNYL citrate 100 MCG/2 ML VIAL IV PRN (10:56)
[2021-10-07] MEDS ORDERED: ePHEDrine sulfate 50 MG/ML SYR ONE (11:01)
[2021-10-07] MEDS ORDERED: NEOSTIGMINE METHYLSULFATE 1 MG/ML 10ML VIAL ONE (11:27)
[2021-10-07] MEDS ORDERED: GLYCOPYRROLATE 0.2 MG/ML VIAL ONE (11:27)
[2021-10-07] MEDS ORDERED: MoRPHine SULFATE 2 MG/ML CARP IV PRN (11:47)
[2021-10-07] MEDS ORDERED: MoRPHine SULFATE 4 MG/ML 1 ML CARP\\VIAL IV PRN (11:47)
[2021-10-07] MEDS ORDERED: oxyCODONE HCL IR 5 MG TAB (IMMEDIATE RELEASE) PO PRN ×2 (11:47)
--- NOTE | 2021-10-07 13:50 | Anesthesiology Progress Note ---
Date of Service October 07, 2021 Anesthesia Post Procedure Vital Signs Vital Signs: Temp Pulse Pulse Pulse Resp BP BP 10/07/21 13:09 37.0 C 64 18 152/82 H 10/07/21 12:35 36.9 C 61 18 137/87 10/07/21 12:25 36.9 C 66 12 144/86 H 10/07/21 12:15 64 12 140/84 10/07/21 12:05 67 12 144/79 H 10/07/21 11:55 77 12 132/81 10/07/21 11:49 36.3 C L 82 20 135/73 10/07/21 10:36 72 10/07/21 07:56 37.0 C 64 19 141/76 H 10/07/21 03:00 37.1 C 59 L 20 116/66 10/06/21 23:24 36.7 C 66 20 138/81 10/06/21 22:59 86 10/06/21 21:50 76 10/06/21 21:28 37.6 C H 75 22 10/06/21 21:04 74 18 10/06/21 19:30 76 18 10/06/21 17:28 89 16 10/06/21 16:20 89 16 10/06/21 15:37 36.5 C 114 H 20 158/80 H BP Pulse Ox 10/07/21 13:09 96 10/07/21 12:35 96 10/07/21 12:25 96 10/07/21 12:15 98 10/07/21 12:05 98 10/07/21 11:55 98 10/07/21 11:49 96 10/07/21 10:36 10/07/21 07:56 96 10/07/21 03:00 96 10/06/21 23:24 95 10/06/21 22:59 10/06/21 21:50 10/06/21 21:28 138/86 97 10/06/21 21:04 132/72 96 10/06/21 19:30 147/76 H 96 10/06/21 17:28 136/74 94 10/06/21 16:20 140/81 99 10/06/21 15:37 95 Pain Intensity Bilateral Face: Pain Intensity: 1 Transfer of Care Handoff Completed per policy Notes Mental Status: alert / awake / arousable and participated in evaluation Patient Amnestic to Procedure: Yes Nausea / Vomiting: adequately controlled Pain: adequately controlled Airway Patency, RR, SpO2: stable & adequate BP & HR: stable & adequate Hydration State: stable & adequate Anesthetic Complications: no major complications apparent and Pt Satisfied with anesthetic care
--- NOTE | 2021-10-07 14:58 | Electrocardiogram Report ---
Test Reason : Blood Pressure : / mmHG Vent. Rate : 080 BPM Atrial Rate : 080 BPM P-R Int : 184 ms QRS Dur : 100 ms QT Int : 374 ms P-R-T Axes : 145 034 125 degrees QTc Int : 431 ms Unusual P axis, possible ectopic atrial rhythm with undetermined rhtyhm irregularity Lateral infarct , age undetermined Abnormal ECG No previous ECGs available Confirmed by Gabriel Coppola ([id number]) on 10/07/2021 2:58:15 PM Referred By: REFERRED SELF Confirmed By:Gabriel Coppola
--- NOTE | 2021-10-07 15:00 | Electrocardiogram Report ---
Test Reason : Blood Pressure : / mmHG Vent. Rate : 069 BPM Atrial Rate : 069 BPM P-R Int : 170 ms QRS Dur : 104 ms QT Int : 386 ms P-R-T Axes : 034 111 062 degrees QTc Int : 413 ms Sinus rhythm with marked sinus arrhythmia Left posterior fascicular block Abnormal ECG When compared with ECG of 06-OCT-2021 16:17, (unconfirmed) Sinus rhythm has replaced Ectopic atrial rhythm Left posterior fascicular block is now Present Criteria for Lateral infarct are no longer Present Criteria for Inferior infarct are no longer Present Nonspecific T wave abnormality no longer evident in Lateral leads Confirmed by Gabriel Coppola ([id number]) on 10/07/2021 3:00:07 PM Referred By: REFERRED SELF Confirmed By:Gabriel Coppola
--- NOTE | 2021-10-07 15:05 | Electrocardiogram Report ---
Test Reason : Blood Pressure : / mmHG Vent. Rate : 070 BPM Atrial Rate : 070 BPM P-R Int : 184 ms QRS Dur : 106 ms QT Int : 422 ms P-R-T Axes : 052 092 070 degrees QTc Int : 455 ms Sinus rhythm with marked sinus arrhythmia Rightward axis Incomplete right bundle branch block Borderline ECG When compared with ECG of 06-OCT-2021 18:55, (unconfirmed) No significant change was found Confirmed by Gabriel Coppola ([id number]) on 10/07/2021 3:05:32 PM Referred By: REFERRED SELF Confirmed By:Gabriel Coppola
--- NOTE | 2021-10-07 15:56 | Oral/Maxillofacial Progress Nt ---
Date of Service October 07, 2021 Assessment & Plan Admission and Anticipated Discharge Date Admission Date: October 06, 2021 Subjective POST OP NOTE: 4 hours post op OK for Discharge as per oral surgery point of view. The patient did very well from the surgical procedure. Oral care is good, swelling as expected. Tissue tone =healthy normal tissue tone No sinus or nerve complications noted Excellent ROM Sutures in place Reviewed oral care and use of peridex Reviewed diet, massage, exercise and continued home/oral care RTC I will have my office call Vishnu to arrange a follow up in 10-14 days Overall: Excellent response from recent oral surgery trauma repair of the upper/lower jaw/teeth and upper lip Results & Data ([facility]) Vital Signs (Past 12 Hours) Vital Signs Temp Pulse Pulse Pulse Resp BP Pulse Ox 10/07/21 15:16 36.7 C 78 22 151/88 H 94 10/07/21 15:04 36.6 C 90 20 146/89 H 93 10/07/21 14:17 36.8 C 71 20 147/71 H 93 10/07/21 13:09 37.0 C 64 18 152/82 H 96 10/07/21 12:35 36.9 C 61 18 137/87 96 10/07/21 12:25 36.9 C 66 12 144/86 H 96 10/07/21 12:15 64 12 140/84 98 10/07/21 12:05 67 12 144/79 H 98 10/07/21 11:55 77 12 132/81 98 10/07/21 11:49 36.3 C L 82 20 135/73 96 10/07/21 10:36 72 10/07/21 07:56 37.0 C 64 19 141/76 H 96 PG Care Time/CCT Total # of Minutes Spent Total Time Spent with Patient: Total time spent is greater than 50% in coordination of care (as documented) at patient's floor/unit and/or counseling patient: Coding Level of Care Code None
[2021-10-08] MEDS: SODIUM CHLORIDE 0.9% 1000ML 1,000 ML IV SCH ×2 (01:33→08:40)
[2021-10-08] MEDS: AMPICILLIN/SULBACTAM SOD 3,000 MG in 0.9 % SODIUM CHLORIDE 100 ML IV SCH (05:21)
[2021-10-08 07:16] LABS: Hematocrit (blood only) 40.6 % (42-52); Hemoglobin 13.6 g/dL (14.0-18.0); Mean Corpuscular Hgb Conc 33.5 g/dL (32-36); Mean Corpuscular Volume 95.5 fL (80-100); Platelet Count 249 K/uL (130-400); RDW Coefficient of Variation 13.2 % (11.5-14.5); RDW Standard Deviation 46.2 fL (36.4-46.3); Red Blood Count 4.25 M/uL (4.7-6.1); White Blood Count 12.72 K/uL (4.8-10.8)
[2021-10-08 07:49] LABS: Estimated Average Glucose 117 mg/dl; Hemoglobin A1C 5.7 % (4.5-5.6)
[2021-10-08 07:52] LABS: BUN Creatinine Ratio 11.3 (10-20); Calcium 9.3 mg/dl (8.5-10.1); Creatinine Clr Calc Pharmacy 80.7 ml/min; Est GFR (African American) 80.3 ml/min; Est GFR (Non-African American) 69.3 ml/min; Magnesium 2.1 mg/dl (1.7-2.4); Potassium 4.4 mmol/L (3.5-5.1)
[2021-10-08] MEDS: FELODIPINE 2.5 MG TABCR PO SCH (09:28)
[2021-10-08] MEDS: ATORVASTATIN 20 MG TAB PO SCH (09:28)
--- NOTE | 2021-10-08 11:11 | Hospitalist Progress Note ---
Date of Service October 08, 2021 Assessment & Plan (1) Closed fracture of face bones due to fall: Plan: Patient is a 75 yr male who presents after fall and facial injury. Mechanical fall Fracture of maxillary alveolar socket wall Loose tooth due to trauma Chronic periodontal disease Lip laceration --Head CT:No acute intracranial findings. No acute calvarial fracture --Face CT:Acute nondisplaced fracture of the left anterior maxilla involving the alveolar ridge of the left maxillary medial incisor. This tooth is likely loose. Abnormal lucency along the alveolar ridge of multiple mandibular teeth. This finding is age indeterminate although probably chronic. This could be correlated with physical exam to exclude an additional acute fracture. Extensive odontogenic disease. --Neck CT:No acute cervical spine fracture or subluxation. --S/P Surgery --Appreciate oromaxillary surgery input --Pain is controlled Continue Unasyn Needs follow-up with surgery upon discharge Plan to discharge on Augmentin for 1 week Suspected Presyncope Fall precautions Monitor on Tele ECHO:reviewed Hyperlipidemia: On statin HTN Continue felodipine. Resume lisinopril/hydrochlorothiazide as able Monitor BP Obesity BMI: 36 DVT Px: SCDs for now Admission and Anticipated Discharge Date Admission Date: October 06, 2021 Subjective Patient is seen and examined at bedside States feeling well today No significant pain at surgical site Tolerating diet No new complaints Denies any chest pain, shortness of breath, dizziness, nausea, abdominal pain Eager to get discharged Review of Systems Review of Systems: All systems reviewed & are unremarkable except as noted in Subjective Physical Exam Physical Exam: Physical Exam: Vitals signs as noted above General Appearance:Obese, no apparent distress Head: normocephalic, +traumatic: Upper lip mucosal laceration, abrasion, loose teeth, dried blood Eyes: normal inspection, EOMI Neck: supple, Trachea midline Respiratory/Chest: Normal breath sounds, CTA, No accessory muscle use Cardiovascular: S1, S2, No murmur Abdomen/GI:Soft, Non tender, Bowel sounds present Extremities/Musculoskeletal:normal inspection, Trace pedal edema Neurologic/Psych:AAOX3, grossly no focal neurological deficits Skin: normal color, warm Results & Data Results & Data ([facility]) Vital Signs (Past 12 Hours) Vital Signs Temp Pulse Resp BP Pulse Ox 10/08/21 08:31 37 C 97 H 18 159/76 H 98 10/08/21 03:00 36.4 C 59 L 16 133/72 97 Laboratory Results Short CBC 10/08/21 Range/Units 06:56 WBC 12.72 H (4.8-10.8) K/uL Hgb 13.6 L (14.0-18.0) g/dL Hct 40.6 L (42-52) % Plt Count 249 (130-400) K/uL BMP 10/08/21 06:56 Sodium 140 Potassium 4.4 Chloride 106 Carbon Dioxide 28 BUN 12 Creatinine 1.06 Glucose 128 H Calcium 9.3
--- NOTE | 2021-10-08 11:16 | Discharge Summary ---
Date of Service October 08, 2021 Admission HPI Per Admitting Provider CHIEF COMPLAINT: Status post fall and facial injury. HISTORY OF PRESENT ILLNESS: This is a 75-year-old male with past medical history significant for hyperlipidemia, gout, prediabetes, hypertension, severe obesity, chronic kidney disease stage III, history of colon polyps who presents with fall. The patient was sleeping, woke up and trying to get up from the bed, he does not know what happened. He thinks maybe his legs got tangled in the bedsheet and he fell on the nightstand on the face, did not pass out. There was lot of blood coming from the mouth. After that, he felt dizzy. He called his and came here and imaging is showing acute nondisplaced fracture of the left anterior maxilla involving the alveolar ridge of the left maxillary medial incisor and had a loose tooth due to trauma. He was evaluated by behavioral health consultant and plan for surgery tomorrow. The patient denies any headache. Has some neck pain from the fall, but he has chronic neck pain. Denies any blurred visions, no runny nose, no sore throat, no cough, no recent fever or chills. No chest pain, no shortness of breath. No nausea, no vomiting, no abdominal pain, normal bowel and bladder movements. No swelling in the legs. Otherwise, ambulates okay, he can ambulate 2 blocks without stopping. Admission Exam Per Admitting Provider PHYSICAL EXAMINATION: GENERAL: The patient is obese, not in acute distress. VITAL SIGNS: Temperature 36.5, pulse 89, respiratory rate 16, blood pressure 136/74, oxygen 94% on room air. HEENT: Pupils equal, round and reactive to light. bruise on the lips seen. NECK: No JVD, no neck masses. CARDIOVASCULAR: S1 and S2 heard. Regular rate and rhythm. No murmur, no gallop. RESPIRATORY SYSTEM: Normal AP diameter. No accessory muscle use. No wheezing, no crackles. ABDOMEN: Soft. Bowel sounds are present, nontender, no distention. CENTRAL NERVOUS SYSTEM: Cranial nerves II-XII grossly intact, nonfocal. EXTREMITIES: No edema, no erythema. Principal Diagnosis Fracture of maxillary alveolar socket wall Discharge Data Allergies Allergy/AdvReac Type Severity Reaction Status Date / Time No Known Allergies Allergy Unverified 10/06/21 20:14 Consultations 10/06/21 18:06 ED Decision to Admit Stat Procedures Performed Operation Date: 10/07/21 09:15 Actual Procedures p Repair of upper lip laceration, stabilization of Maxilla Fracture(Not Applicable) - Dewey Welch DMD s Removal of teeth 6-12, 20-22,26,27, (Not Applicable) - Dewey Welch DMD Ordered Studies 10/06/21 15:51 CT cervical spine wo con Stat CT facial bones wo con Stat CT head/brain wo con Stat Hospital Course (1) Closed fracture of face bones due to fall: Patient is a 75 yr male who presents after fall and facial injury. Mechanical fall Fracture of maxillary alveolar socket wall Loose tooth due to trauma Chronic periodontal disease Lip laceration --Head CT:No acute intracranial findings. No acute calvarial fracture --Face CT:Acute nondisplaced fracture of the left anterior maxilla involving the alveolar ridge of the left maxillary medial incisor. This tooth is likely loose. Abnormal lucency along the alveolar ridge of multiple mandibular teeth. This finding is age indeterminate although probably chronic. This could be correlated with physical exam to exclude an additional acute fracture. Extensive odontogenic disease. --Neck CT:No acute cervical spine fracture or subluxation. --S/P Surgery --Appreciate oromaxillary surgery input --Pain is controlled Continue Unasyn Needs follow-up with surgery upon discharge Plan to discharge on Augmentin for 1 week Suspected Presyncope Fall precautions Monitor on Tele ECHO:reviewed Hyperlipidemia: On statin HTN Continue felodipine. Resume lisinopril/hydrochlorothiazide as able Monitor BP Obesity BMI: 36 DVT Px: SCDs for now Total Time Total Time Spent Total Time Spent (In Minutes): 45 minutes Discharge Plan Discharge Items Patient Disposition: Home - Self-Care Reason For Visit: FALL Discharge Diagnosis: s/p maxillary dento-alveolar fracture Condition on Discharge: Good Activity: Resume your previous activity Activity Comment: take it easy for a few days Lifting: Gradually increase as tolerated Bathing: No limitations Exercise/Sports: Gradually increase as tolerated Driving/Machine Use: Resume 1 day after discharge Weightbearing: Full weightbearing Non-emergency contact: Primary Care Provider and Surgeon Call non-emergency contact if: you have any medication questions, your temperature is above 101.5, your wound has increased drainage and your wound pain has increased Follow-up/Referrals: Welch,Dewey R, DMD [Physician] - ( Dr Dewey Welch [address] [facility] [place] [id number] ) Preston Tolbert DO [Primary Care Provider] - (Date & Time 10/11/2021 9:00 AM Provider Preston Tolbert DO Department Family [facility] ) Diet: Full liquid and Clear liquid Diet Texture: Pureed (blended smooth) Addtl Attending Provider Instructions: Follow-up with your primary care physician Dr. Tolbert on 10/11/2021 9:00 AM Follow-up with your surgeon as advised --- Complete antibiotic course (Augmentin for 1 week) as prescribed. Seek immediate medical attention if your symptoms reoccur or worsen Please take all medications as instructed on discharge list below. Please call if you have any questions or problems. You can reach a [facility] hospitalist on duty at [facility] 24 hours a day by calling [phone] Helio Accessibility Lift Technician Provider Instructions: ADDITIONAL ACTIVITY RECOMMENDATIONS: * Starting tonight rinse with the Peridex as directed then 2 x a day * it is very important to keep well hydrated, this prevents fever and possible dry socket pain SPECIAL CARE INSTRUCTIONS: *It is not uncommon that between day 2-4 that your swelling will be at its worst this is very normal, do not be alarmed. * Keep ice on the side of your face for the next 24 to 36 hours. This will help keep the swelling down. * Tomorrow start rinsing your mouth with 1/2 teaspoon salt in 8 ounces warm water. This rinse should be used every 4-6 hours. * You may experience slight nausea. To prevent this, never take your medication on an empty stomach. If nauseated, take small sips of jacobo arin until you feel better; then you may start on applesauce and toast. * Some swelling is common. It should gradually decrease within 4-5 days. * A certain amount of bleeding is to be expected. It is often possible to control mild oozing by placing folded gauze over the area and biting down for 30 minutes. If you are unable to control excessive bleeding, call Dr Welch at [phone] * You may experience some discomfort for a few days. If pain or swelling increases, Call Dr Welch * Return to the office for a follow up check up on: * office address--[address] phone # [phone] Pending Studies at Discharge: No Stand-Alone Forms: [facility], Smoking Cessation Medications and DC Order Prescriptions: Continued amoxicillin-pot clavulanate 875-125 mg tablet 1 tab PO Q12H Qty: 20 RF: 0 hydrocodone-acetaminophen 5-325 mg tablet 1 tab PO Q4H PRN (Reason: pain) Qty: 14 RF: 0 felodipine 2.5 mg tablet extended release 24 hr 2.5 mg PO QAM RF: 0 atorvastatin 20 mg tablet 20 mg PO QAM RF: 0 lisinopril-hydrochlorothiazide 20-12.5 mg tablet 1 tab PO QAM RF: 0 Discharge Orders: Discharge Order (Routine); Ordered 10/08/21 Ordered By: Galileo Hearn Admission Data Admit Date/Time: 10/06/21 20:07 Attending Provider: Galileo Hearn Admit Provider: Kobe Del Rosario Primary Care Provider: Preston Tolbert Other Providers: Kobe Del Rosario
--- NOTE | 2021-10-08 15:16 | Electrocardiogram Report ---
Test Reason : Blood Pressure : / mmHG Vent. Rate : 056 BPM Atrial Rate : 056 BPM P-R Int : 202 ms QRS Dur : 106 ms QT Int : 426 ms P-R-T Axes : -11 092 078 degrees QTc Int : 411 ms Sinus bradycardia Rightward axis Borderline ECG When compared with ECG of 07-OCT-2021 05:53, No significant change was found Confirmed by Gabriel Coppola ([id number]) on 10/08/2021 3:16:44 PM Referred By: REFERRED SELF Confirmed By:Gabriel Coppola
--- NOTE | 2021-10-24 20:37 | Oral/Maxillofacial Consult ---
Date of Consultation October 06, 2021 Assessment & Plan (1) Fracture of maxillary alveolar socket wall: (2) Loose tooth due to trauma: (3) Chronic periodontal disease: (4) Lip laceration: (5) Closed fracture of face bones due to fall: to OR stabilization of the dentoalveolar fracture, repair lip laceration and extraction of teeth History of Present Illness History of Present Illness Oral Maxillofacial Surgery Exam Present Complaint: got out of bed tripped and hit front of face on night stand loose teeth upper and lower, laceration upper lip Oral Exam: alveolar fracture maxilla involving teeth 6-12 very deep bite abnormal position of the teeth Class II deep bite fractured teeth periodontal disease lower remaining teeth Imaging: MAXILLOFACIAL CT WITHOUT CONTRAST CLINICAL HISTORY: Fall, Facial trauma, upper lip/teeth FINDINGS: Globes are intact. There is no retrobulbar hematoma. Orbital floors are intact. Pterygoid plates are intact. Alignment of the temporomandibular joints is anatomic. There is no acute skull base fracture. Note is made of an acute fracture through the left aspect of the maxilla. This involves the alveolar ridge of the left maxillary medial incisor. There is lucency adjacent to the root of this tooth. There is a 1.2 cm bony erosion associated with the left maxillary first bicuspid. This is not acute. There is abnormal lucency along the alveolar ridge of multiple mandibular teeth. This is age indeterminate. Numerous teeth are absent. Cervical spine CT will be reported separately. IMPRESSION: 1. Acute nondisplaced fracture of the left anterior maxilla involving the alveolar ridge of the left maxillary medial incisor. This tooth is likely loose. 2. Abnormal lucency along the alveolar ridge of multiple mandibular teeth. This finding is age indeterminate although probably chronic. This could be correlated with physical exam to exclude an additional acute fracture. 3. Extensive odontogenic disease. Soft tissue: 2 cm intermediate laceration upper left lip pipo area floor of the mouth, tongue, hard/soft palate, posterior pharyngeal area all with in normal limits. Oral Care: Overall oral care is fair Occlusion: Class II deep bite loss of many teeth only the anterior upper/lower which are now severely compromised. TMJ exam: No pop, clicking, pain, good ROM Periodontal exam: Gingival tissue show early evidence of periodontal pathology. Head/Neck exam: Neck is supple, FROM, Able to extend and flex neck w/o difficulty, no masses, no abnormalities, Strong evidence of sleep apnea. Treatment Plan: Obtain medical clearance from hospital service. Set up with general anesthesia in hospital due to complexity of the procedure I reviewed the treatment plan and consent with the patient and Understanding was expressed. Time was given for questions regarding the surgery, risks and post op care. Discussed alternative to treatment--procedure as planned,try to save teeth but very poor prognosis . The teeth are fractured, loose and in an abnormal position, removal is indicated and medically necessary. The following teeth are decayed and fractured and removal is indicated ALINA: 6- 12, 20-22,26,27 Risks discussed: Bleeding,Pain,swelling,infection, dry socket, delayed healing, nerve injury to face,lips,tongue,chin area which could be permanent (rare). TMJ, jaw stiffness, change in bite (rare), ear pain (referred). Sinus problems like fistula or infection. Need to leave a small root fragment in place to avoid injury to nerve or sinus. need for future dentures in 2-3 months Home care reviewed: rinsing, follow up care with Dr Welch. diet=[id number] dental. Discussed activity level, driving/work while on Rx pain Meds. Surgery to be set up once cleared by hospital service Allergies Allergy/AdvReac Type Severity Reaction Status Date / Time No Known Allergies Allergy Unverified 10/23/21 12:54 Home Medications Medication Instructions Recorded Confirmed Type atorvastatin 20 mg tablet 20 mg PO QAM 10/06/21 10/23/21 History felodipine 2.5 mg tablet,extended 2.5 mg PO QAM 10/06/21 10/23/21 History release 24 hr lisinopril 20 1 tab PO QAM 10/06/21 10/23/21 History mg-hydrochlorothiazide 12.5 mg tablet Patient History Medical History HTN (hypertension) Hypercholesterolemia Surgical History No pertinent past surgical history Social History Smoking Status: Former smoker Hx Alcohol Use: Yes Alcohol type: wine Preferred Language: Romansh Communication Ability: Effective Visual Impairment: No Limitations Chemical Inspector Required: No Beliefs That Will Affect Care: None marital status: Current Living Situation: Spouse Feels Safe at Home: Yes Assistive Devices: None Results & Data ([facility]) Vital Signs (Past 12 Hours) Vital Signs Temp Pulse Pulse Resp BP BP Pulse Ox 10/06/21 17:28 89 16 136/74 94 10/06/21 16:20 89 16 140/81 99 10/06/21 15:37 36.5 C 114 H 20 158/80 H 95 PG Care Time/CCT Total # of Minutes Spent Total Time Spent with Patient: Total time spent is greater than 50% in coordination of care (as documented) at patient's floor/unit and/or counseling patient: Prolonged Care Time 60 Coding Level of Care Code 47066 Initial Inpt Care Lvl 3 Diagnoses Fracture of maxillary alveolar socket wall S02.42XA Encounter type: initial encounter Fracture type: closed Loose tooth due to trauma K08.89 Chronic periodontal disease K05.6 Lip laceration S01.511A Encounter type: initial encounter Closed fracture of face bones due to fall S02.92XA; W19.XXXA Encounter type: initial encounter (1) Lip laceration Encounter type: initial encounter Qualified Code(s): S01.511A - Laceration without foreign body of lip, initial encounter (2) Fracture of maxillary alveolar socket wall Encounter type: initial encounter Fracture type: closed Qualified Code(s): S02.42XA - Fracture of alveolus of maxilla, initial encounter for closed fracture (3) Closed fracture of face bones due to fall Encounter type: initial encounter Qualified Code(s): S02.92XA - Unspecified fracture of facial bones, initial encounter for closed fracture; W19.XXXA - Unspecified fall, initial encounter
--- NOTE | 2021-10-24 21:05 | Operative Report ---
PG Post Operative Report Pre & Post Diagnosis Operation Date: 10/07/21 09:15 Pre-Op Diagnosis: Fracture of maxillary alveolar socket wall, Loose tooth due to trauma Post-Op Diagnosis: Fracture of maxillary alveolar socket wall, Loose tooth due to trauma I identified the patient and participated in the time-out.: Yes Procedure Operation Date: 10/07/21 09:15 Actual Procedures p Repair of upper lip laceration, stabilization of Maxilla Fracture(Not Applicable) - Dewey Welch DMD s Removal of teeth 6-12, 20-22,26,27, (Not Applicable) - Dewey Welch DMD Surgeon Dewey Welch DMD Muffler Hand none Estimated Blood Loss 8 Findings Consistent with Post-Op Diagnosis upper lip laceration, unstable dentoalveolar fracture need for stabilization of Maxilla Fracture fractured teeth 6-12, 20-22,26,27, Specimens none Drains none Anesthesia Type General Complications none Indications fracture of the dentoalveolar bone causing mobility of all upper and lower anterior teeth upper lip laceration, unstable dentoalveolar fracture need for stabilization of Maxilla Fracture fractured teeth 6-12, 20-22,26,27, Description of Procedure Coding CPT 20353 S01.512A D7210 teeth # 6,7,8,9,10,11,12 x 7 S02.5XXA D7140 teeth # 20,21,22,26,27 x 5 S02.5XXA CPT 20208 S02.42XA Pre-op= fracture of the maxillary dentoalveolar bone causing mobility of all upper and lower anterior teeth upper lip laceration unstable dentoalveolar fracture need for stabilization of maxillary Fracture fractured teeth 6-12, 20-22,26,27, Procedure Extraction of fractured and loose teeth 6-12, 20-22,26,27 Repair of intermediate upper lip laceration 2 cm pipo tissue Stabilization of maxillary dentoalveolar fracture by closed method Once cleared for surgery general anesthesia was achieved, the eyes were protected by the anesthesia dept criteria.. A time out was take for patient ID, antibiotics, equipment and position verification once all agreed the procedure began. Local anesthesia was given into each area using Marcaine with a vasoconstrictor ( 1.8 ml per site). A throat pack was placed after the oral cavity was irrigated with saline. Once a surgical level of anesthesia was obtained and the local anesthesia was given time for the blocks the surgery was started. I turned my attention to the upper wisdom teeth first. Stabilization of the dentoalveolar fracture anterior maxilla with extraction of teeth # 6,7,8,9,10,11,12 CPT 02315 S02.42XA D7210 X 7 S02.5XXA As the result of the facial all the upper teeth were loose but attached to the facial plate of the alveolar bone which was firmly attached to the periosteum. This was a true dentoalveolar fracture, the facial plate from the palatal plate and the teeth were attached to the facial and loose. Under ideal situation the teeth would have been stabilized and allowed to heal. However the state of the were in not ideal shape, the teeth were fractured and in a very poor Class II deep bite position. There teeth were fractured and deemed un restorable. The decision to removed the teeth and plan for full dentures was made. An Incision was made around all the loose teeth. The full thickness flap was reflected,any fractured bone was removed with a rongeur, the fractured bone was attached to the periosteum the loose teeth were carefully removed from the facial bone. The facial plate was left attached to the facial soft tissue. Once the teeth were removed the Bony margins were trimmed, smoothed and using pressure I was able to reposition the flap to re-establish a more anatomic ridge form. To stabilize the the fracture anterior ridge deep 2-0 chromic sutures were used to support the ridge in a hammock fashion. Once I was satisfied with the stability of the bone ridge. I completed the closure with a 2-0 chromic suture. Lower teeth # 20-22,26,27 loose and non functional D7140 x 5 S02.5XXA There teeth were removed with a dental forceps, there was minimal bleeding. The bone was trimmed, smoothed and the sockets were closed with a few 2-0 chromic sutures. Repair of 2 cm intermediate lip laceration CPT 10327 S01.512A This was a thought and through laceration involving 2 cm of the upper lip pipo and muscle. The deep muscle was repaired with a 4-0 chromic, the vermilion was aligned with Vicryl sutures, the Muco-cutaneous facial laceration was closed with 4-0 chromic. When the procedures were completed I inspected the sites to insure all bleeding was controlled. I removed the throat pack and suctioned the throat. Bilateral gauze pressure dressings were placed. All instrument and sponge count was correct. the patient was allowed to awake from the anesthesia. Once full awake the anesthesia tube was removed and the patient was taken to the recovery room with all vital sign stable. The patient tolerated the surgery very well. I will follow the patient in my office, Rx and instructions will be given upon discharge. I attest to the content of the Intraoperative Record and any orders documented therein. Any exceptions are noted below.
== END 2021-10-08 12:20 | disposition home or self-care (01) | DRG 566 ==
LOC: ED 15:34 → 2E 20:07 → SUATTDRO 20:07 → 2E 21:14